=== PATIENT | male | born 1975 | race Caucasian/White ===

== ENCOUNTER 2016-07-19 19:39 | Emergency (ER) | payer BC ==
[~2016-07-19] VITALS: Ht 177.8 cm; Wt 139.5 kg
[2016-07-19 19:43] VITALS: BP 142/97; TEMP 98.4
[2016-07-19] MEDS ORDERED: CLARITIN 1010 MG/TAB PO (19:49)
[2016-07-19] MEDS ORDERED: PRILOSEC 20MG20 MG PO (19:49)
[2016-07-19] MEDS ORDERED: 00186-0370-20 IH (19:49)
[2016-07-19] MEDS ORDERED: SINGULAIR 110 MG/TAB (19:49)
[2016-07-19] MEDS ORDERED: GLUCOPHAGE XR500 M1 (19:50)
[2016-07-19 20:36] LABS: BASO % 0.3 % (0.0-2.0); EOS # 0.1 (0.0-0.7); EOS % 1.4 % (0-4.0); GRAN # 5.3 (1.4-6.5); GRAN % 57.1 % (42.2-75.2); HEMATOCRIT 44.1 % (42.0-52.0); HEMOGLOBIN 14.9 g/dl (13.5-18.0); LYMPH % 32.1 % (20.0-51.0); MEAN CELL VOLUME 84 fl (80.0-100.0); MEAN CORPUSCULAR HEMOGLOBIN 28 pg (27.0-31.0); MEAN CORPUSCULAR HGB CONC 34 g/dl (33.0-37.0); MEAN PLATELET VOLUME 10.9 fl (7.4-10.4); MONO # 0.8 (0.1-0.6); MONO % 8.9 % (1.7-9.3); PLATELET COUNT 198 K/mm3 (130-400); RED BLOOD COUNT 5.28 M/mm3 (4.20-5.60); WHITE BLOOD COUNT 9.3 K/mm3 (4.8-10.8)
[2016-07-19 20:46] LABS: PROTHROMBIN TIME 11.4 SECONDS (9.7-12.8)
[2016-07-19 20:48] LABS: PARTIAL THROMBOPLASTIN TIME 42.9 SECONDS (26.0-37.0)
[2016-07-19 20:55] LABS: ADJUSTED CALCIUM 9.1 mg/dL (8.4-10.2); ALANINE AMINOTRANSFERASE 68 U/L (21-72); ALKALINE PHOSPHATASE 81 U/L (50-136); ANION GAP 11 mmol/L (7-16); BILIRUBIN,TOTAL 0.7 mg/dL (0.0-1.0); BLOOD UREA NITROGEN 11 mg/dL (9-20); CALCIUM 9.1 mg/dL (8.4-10.2); CARBON DIOXIDE 28 mmol/L (22-30); CHLORIDE 100 mmol/L (98-107); CREATININE, serum 0.76 mg/dL (0.66-1.25); GLUCOSE 106 mg/dL (74-106); MAGNESIUM 1.9 mg/dL (1.6-2.3); POTASSIUM 3.9 mmol/L (3.4-5.0); SODIUM 139 mmol/L (137-145); TOTAL PROTEIN 7.7 gm/dL (6.4-8.2)
[2016-07-19 21:06] LABS: TROPONIN-I < 0.012 ng/mL (0.000-0.034)
[2016-07-19 21:38] VITALS: PULSE 92
== END 2016-07-19 21:38 | disposition home or self-care (01) ==
LOC: COL.ER 19:39
PROVIDERS: Emergency Medicine
DX: M48.02 Spinal stenosis, cervical region (principal); E11.9 Type 2 diabetes mellitus without complications; Z79.84 Long term (current) use of oral hypoglycemic drugs

== ENCOUNTER → 2016-09-07 | Outpatient (CLI) | payer BC ==
[~2016-09-07] MED LIST: 00186-0370-20 IH; CLARITIN 1010 MG/TAB PO; GLUCOPHAGE XR500 M1; PRILOSEC 20MG20 MG PO; SINGULAIR 110 MG/TAB
== END ==
LOC: SUN.DIA 09:49
DX: E11.65 Type 2 diabetes mellitus with hyperglycemia (principal); E66.9 Obesity, unspecified; Z68.41 Body mass index [BMI] 40.0-44.9, adult; Z71.3 Dietary counseling and surveillance; E78.5 Hyperlipidemia, unspecified; I10 Essential (primary) hypertension
CPT/HCPCS: G0108

== ENCOUNTER → 2016-09-08 | Outpatient (CLI) | payer BC | LOC: MHCPAIN 12:36 | DX: G89.29 Other chronic pain (principal); M47.22 Other spondylosis with radiculopathy, cervical region; M48.02 Spinal stenosis, cervical region; M43.22 Fusion of spine, cervical region | CPT/HCPCS: G0463 ==

== ENCOUNTER → 2016-09-24 | Outpatient (CLI) | payer BC | LOC: MHCPAIN 12:42 | DX: M50.90 Cervical disc disorder, unspecified, unspecified cervical region (principal) | CPT/HCPCS: J1100; Q9967 ==

== ENCOUNTER → 2016-10-23 | Outpatient (CLI) | payer BC | LOC: MHCPAIN 11:39 | DX: G89.29 Other chronic pain (principal); M50.90 Cervical disc disorder, unspecified, unspecified cervical region; M54.12 Radiculopathy, cervical region | CPT/HCPCS: G0463 ==